=== PATIENT | female | born 1930 | race Hispanic/Latino ===

== ENCOUNTER 2017-06-19 16:46 | Emergency (ER) | payer MEDICARE, OTHER ==
[2017-06-19] MEDS ORDERED: TETANUS/DIPHTHERIA TOXOID [ADULT] 0.5 ML VIAL IM ONE (17:35)
[2017-06-19] MEDS ORDERED: OCTYL 2-CYANOACRYLATE 1 EACH TP ONE (17:51)
[2017-06-19] MEDS ORDERED: IBUPROFEN 200 MG TAB ONE (19:35)
== END 2017-06-19 20:01 | disposition home or self-care (01) ==
LOC: EDH 16:46 → EDBD 16:46 → EDH 20:01
DX: S61.419A Laceration without foreign body of unspecified hand, initial encounter (principal); S00.83XA Contusion of other part of head, initial encounter; M79.604 Pain in right leg; G30.9 Alzheimer's disease, unspecified; F02.80 Dementia in other diseases classified elsewhere, unspecified severity, without behavioral disturbance, psychotic disturbance, mood disturbance, and anxiety; Z98.890 Other specified postprocedural states; W07.XXXA Fall from chair, initial encounter; Y93.89 Activity, other specified; Y92.89 Other specified places as the place of occurrence of the external cause; Y99.8 Other external cause status
CPT/HCPCS: 12042; 70450; 72125; 90471; 90714; 93005; 93971